=== PATIENT | female | born 2000 ===

== ENCOUNTER 2021-12-05 17:08 | Inpatient (IN) | payer BC ==
[2021-12-05] MEDS ORDERED: Sodium Chloride 0.9% 10 ML Syringe FLUSH PRN (18:08)
[2021-12-05] MEDS ORDERED: Methylergonovine 0.2 MG/1 ML Amp IM PRN (18:08)
[2021-12-05] MEDS ORDERED: Lidocaine 1% 50 ML MDV INJECT PRN (18:08)
[2021-12-05] MEDS ORDERED: Tranexamic Acid 1,000 MG in Sodium Chloride 0.9% 100 ML IV PRN (18:08)
[2021-12-05] MEDS ORDERED: Misoprostol 200 MCG Tab PO PRN (18:08)
[2021-12-05] MEDS ORDERED: Butorphanol 1 MG/ML SDV IVPUSH PRN (18:08)
[2021-12-05] MEDS ORDERED: Water For Irrigation,Sterile 1,000 ML Container IRR PRN (18:08)
[2021-12-05] MEDS ORDERED: Carboprost Tromethamine 250 MCG/1 ML Amp IM PRN (18:08)
[2021-12-05] MEDS ORDERED: Terbutaline 1 MG/ML SDV SUBCUT PRN (18:08)
[2021-12-05] MEDS ORDERED: Misoprostol 25 MCG (1/4 of 100 MCG) Tab VAG PRN (18:08)
[2021-12-05] MEDS ORDERED: Sodium Chloride 0.9% 2.5 ML Syringe FLUSH PRN (18:08)
[2021-12-05] MEDS ORDERED: Sodium Chloride 0.9% 20 ML SDV IV PRN (18:08)
[2021-12-05] MEDS ORDERED: Oxytocin/0.9 % Sodium Chloride 30 UNIT/500 ML BAG IV SCH ×2 (18:15)
[2021-12-05] MEDS ORDERED: ePHEDrine 50 MG/ML SDV IVPUSH PRN ×2 (18:49)
[2021-12-05] MEDS ORDERED: Ropivacaine HCl/PF 400 MG in Premix Bag 1 BAG EPIDUR SCH (19:00)
[2021-12-05] MEDS: Misoprostol 25 MCG (1/4 of 100 MCG) Tab VAG PRN (23:03)
[2021-12-06] MEDS: Misoprostol 25 MCG (1/4 of 100 MCG) Tab VAG PRN (02:57)
[2021-12-06] MEDS: Lactated Ringers 1,000 ML IV SCH ×4 (07:59→20:49)
[2021-12-06] MEDS ORDERED: Ondansetron 4 MG/2 ML SDV IVPUSH PRN (09:35)
[2021-12-06] MEDS ORDERED: Bupivacaine 0.25% 10 ML SDV ONE (17:27)
[2021-12-06] MEDS ORDERED: Witch Hazel Medicated Pads 40/Jar TOP PRN (22:44)
[2021-12-06] MEDS ORDERED: Tranexamic Acid 1,000 MG in Sodium Chloride 0.9% 100 ML IV PRN (22:44)
[2021-12-06] MEDS ORDERED: Ibuprofen 800 MG Tab PO PRN (22:44)
[2021-12-06] MEDS ORDERED: Acetaminophen 500 MG Tab PO PRN ×2 (22:44)
[2021-12-06] MEDS ORDERED: Methylergonovine 0.2 MG/1 ML Amp IM PRN (22:44)
[2021-12-06] MEDS ORDERED: Docusate Sodium 100 MG Cap PO PRN (22:44)
[2021-12-06] MEDS ORDERED: Bisacodyl 10 MG Supp RECTAL PRN (22:44)
[2021-12-06] MEDS ORDERED: Ibuprofen 400 MG Tab PO PRN (22:44)
[2021-12-06] MEDS ORDERED: Benzocaine/Menthol 20%-0.5% Spray 78 GM Cannister TOP PRN (22:44)
[2021-12-06] MEDS ORDERED: Lanolin 100% Cream 7 GM Tube TOP PRN (22:44)
== END 2021-12-08 12:30 | disposition home or self-care (01) | DRG 560 ==
LOC: MW.OB 17:08 → MW.OBCHECK 17:08 → MW.OB 18:09 → OBSVTOIN 12-06 22:22 → MW.OB 12-07 02:30
PROVIDERS: ADMIT Obstetrics & Gynecology; ATTEND Obstetrics & Gynecology
PROC: 10E0XZZ Delivery of Products of Conception, External Approach (ICD-10-PCS; principal; 2021-12-06)
PROC: 0KQM0ZZ Repair Perineum Muscle, Open Approach (ICD-10-PCS; 2021-12-06)
PROC: 3E0R3BZ Introduction of Anesthetic Agent into Spinal Canal, Percutaneous Approach (ICD-10-PCS; 2021-12-06)
PROC: 00HU33Z Insertion of Infusion Device into Spinal Canal, Percutaneous Approach (ICD-10-PCS; 2021-12-06)
PROC: 10H07YZ Insertion of Other Device into Products of Conception, Via Natural or Artificial Opening (ICD-10-PCS; 2021-12-06)
DX: O26.62 Liver and biliary tract disorders in childbirth (principal); K83.1 Obstruction of bile duct; Z3A.39 39 weeks gestation of pregnancy; Z37.0 Single live birth; Z20.822 Contact with and (suspected) exposure to COVID-19
CPT/HCPCS: 01967; 36415; 51702; 59025; 59200; 59409; 82803; 85014; 85018; 85027; 86592; 86850; 86900; 86901; A9270-GY; J2405; J2590; J3490; J7120; U0002

== ENCOUNTER 2022-01-15 20:41 | Observation (INO) | payer BC, OTHER ==
[2022-01-15] MEDS ORDERED: Sodium Chloride 0.9% 20 ML SDV IV PRN (22:01)
[2022-01-15] MEDS ORDERED: Ketorolac 30 MG/ML SDV IM PRN (22:01)
[2022-01-15] MEDS ORDERED: Acetaminophen 325 MG Tab PO PRN (22:01)
[2022-01-15] MEDS ORDERED: Ondansetron 4 MG/2 ML SDV IVPUSH PRN (22:01)
[2022-01-15] MEDS ORDERED: Sodium Chloride 0.9% 2.5 ML Syringe FLUSH PRN (22:01)
[2022-01-15] MEDS ORDERED: Ibuprofen 600 MG Tab PO PRN (22:01)
[2022-01-15] MEDS ORDERED: Sodium Chloride 0.9% 10 ML Syringe FLUSH PRN (22:01)
[2022-01-15] MEDS ORDERED: Sodium Chloride 0.9% 1,000 ML IV ONE (22:11)
[2022-01-15] MEDS: Piperacillin/Tazobactam 3.375 GM in Sodium Chloride 0.9% 50 ML IV SCH (22:37)
[2022-01-15] MEDS ORDERED: Iopamidol 755 MG/ML 500 ML Multipack Bottle IVPUSH ONE (23:42)
[2022-01-16] MEDS: Sodium Chloride 0.9% 1,000 ML IV SCH ×2 (00:33→09:32)
[2022-01-16] MEDS: Piperacillin/Tazobactam 3.375 GM in Sodium Chloride 0.9% 50 ML IV SCH ×3 (05:33→21:51)
[2022-01-16 06:38] LABS: CARBON DIOXIDE,CO2 23.6 mmol/L (21.0-32.0); POTASSIUM,K 3.9 mmol/L (3.5-5.1)
[2022-01-17 06:12] LABS: CARBON DIOXIDE,CO2 23.1 mmol/L (21.0-32.0); POTASSIUM,K 3.9 mmol/L (3.5-5.1)
[2022-01-17] MEDS: Piperacillin/Tazobactam 3.375 GM in Sodium Chloride 0.9% 50 ML IV SCH ×2 (06:12→14:39)
== END 2022-01-17 16:06 | disposition home or self-care (01) ==
LOC: MW.MS 20:41
PROVIDERS: ADMIT Obstetrics & Gynecology; ATTEND Obstetrics & Gynecology
DX: O86.4 Pyrexia of unknown origin following delivery (principal); Z98.890 Other specified postprocedural states
CPT/HCPCS: 36415; 74177; 76830; 80053; 83605; 85025; 87040; 87086; 96365; 96376; G0378; G0379; J2543; J7030; Q9967